=== PATIENT | male | born 1980 | race Caucasian/White ===

== ENCOUNTER 2025-01-10 15:10 | Emergency (ER) | payer SELFPAY ==
[2025-01-10 16:42] LABS: BASOPHILS ABSOLUTE AUTO 0.05 K/uL (0.00-0.20); BASOPHILS PERCENT AUTO 0.5 % (0.0-1.0); EOSINOPHILS ABSOLUTE AUTO 0.21 K/uL (0.00-0.45); EOSINOPHILS PERCENT AUTO 2.2 % (0.0-6.0); IMMATURE GRAN ABSOLUTE AUTO 0.03 K/uL (0.00-0.05); IMMATURE GRAN PERCENT AUTO 0.3 % (0.0-0.4); LYMPHOCYTES ABSOLUTE AUTO 2.60 K/uL (1.00-4.80); LYMPHOCYTES PERCENT AUTO 27.5 % (24.0-44.0); MEAN PLATELET VOLUME 9.2 fL (9.4-12.4); MONOCYTES ABSOLUTE AUTO 0.52 K/uL (0.00-0.80); MONOCYTES PERCENT AUTO 5.5 % (0.0-8.0); NEUTROPHILS ABSOLUTE AUTO 6.06 K/uL (1.80-7.70); NEUTROPHILS PERCENT AUTO 64.0 % (41.0-71.0); NRBC ABSOLUTE 0.00 K/uL (0.00-0.02); NRBC PERCENT 0.0 /100WBC (0.0-0.2); PLATELET COUNT,PLT 311 K/uL (150-400); RED BLOOD CELL COUNT 5.34 M/uL (4.52-5.90); WHITE BLOOD CELL COUNT,WBC 9.47 K/uL (3.9-11.3)
[2025-01-10 16:44] LABS: BASE EXCESS VENOUS 5.5 (-2.0-3.0); BICARBONATE,VENOUS 31.0 mEq/L (22-29); PCO2 VENOUS 45.0 mmHG (41-51); PH,VENOUS 7.44 (7.32-7.43); PO2 VENOUS 50.0 mmHG (35-45)
[2025-01-10 17:07] LABS: BLOOD UREA NITROGEN,BUN 20.0 mg/dL (7.0-18.0); CARBON DIOXIDE,CO2 26.7 mmol/L (21.0-32.0); CHLORIDE,CL 102.0 mmol/L (98-107); CREATININE 1.0 mg/dL (0.8-1.3); EST CRCL DRUG DOSING (CG) 95.25 mL/min; GLUCOSE RANDOM 159.0 mg/dL (74-106); POTASSIUM,K 3.8 mmol/L (3.5-5.1); SODIUM,NA 138.0 mmol/L (136-148)
[2025-01-10 17:39] LABS: ESTIMATED GFR 96.0 mL/min (>60)
== END 2025-01-10 18:16 | disposition home or self-care (01) ==
LOC: MW.ED 15:10
DX: Z77.098 Contact with and (suspected) exposure to other hazardous, chiefly nonmedicinal, chemicals (principal)
CPT/HCPCS: 36415; 71045; 71045-26; 80048; 82803; 85025; 99283